=== PATIENT | female | born 1965 | race Hispanic/Latino ===

== ENCOUNTER 2020-10-24 13:41 | Inpatient (IN) | payer BC ==
[2020-10-24 17:08] LABS: SARS-CoV-2 NAA Rapid Test Not Detected (NotDetected)
[2020-10-24 17:12] VITALS: BMI 29.8
[2020-10-24] MEDS ORDERED: Acetaminophen 325 MG TAB PO PRN (17:24)
[2020-10-24] MEDS ORDERED: niCARdipine 25 MG in Sodium Chloride 0.9% 250 ML 250 ML IVPB PRN (17:24)
[2020-10-24] MEDS ORDERED: hydrALAZINE 20 MG/ML VIAL SLOW IVP PRN (17:24)
[2020-10-24] MEDS ORDERED: Acetaminophen 650 MG Suppository PR PRN (17:24)
[2020-10-24] MEDS ORDERED: Labetalol HCl 100 MG/20 ML VIAL SLOW IVP PRN (17:24)
--- NOTE | 2020-10-24 17:38 | PDOC.HHP ---
Hospitalist [facility] Code Stroke History of Present Illness: Ms. Loco is a 55-year-old female past medical history of Lazarus's thyroi ditis who was a transfer from [facility] for a code stroke. Patient at approximately 10:30 AM this morning developed sudden onset of dysphagia, right- sided facial droop, right upper and lower extremity weakness. This was witnessed by her who was with her at the time. Family called the ambulance immediately and she was transferred to [facility]. On arrival there CT brain was negative, however CT angiogram revealed thrombosis in the M2 vessel. Dr. Coy was consulted and the ER physician discussed with him. Dr. Coy felt that the lesion was too distal to be accessible for thrombectomy. Patient was administered aspirin at that time as her symptoms had briefly improved and so TPA was not given. Patient was transferred to [facility] in [place]. Here she had a worsening of her NIH stroke scale to 10. Case was discussed between ER physician, neurosurgery and neurology as well as family and the patient received TPA. Her symptoms have now greatly improved. Her reports that her speech is about 95% back to baseline, and patient reports that she still has some numbness or paresthesias to the right upper and lower extremities, but that her strength is much improved. NIH stroke scale is now at 2 post TPA. Patient has no history of any risk factors for stroke, but does have a family history significant for CVA in her mother. Patient's mother had a history of atrial fibrillation and have a stroke when she was temporarily off her warfarin. Patient denies any smoking history no oral contraceptive use. In emergency room initial vital signs 116, 57, 17, 98% on room air. Of note patient did receive atropine with during transfer, because she became temporarily bradycardic. Patient has had a heart rate in the 60s since arrival to [facility] ER. She is asymptomatic. H&H 12.5/38.1, WBC 3.9, platelet 182. BUN/CR 17/1.25, sodium 139, potassium 3.7, glucose 108. AST/ALT 42/40, alk phos 47, troponin less than 0.010. Patient admitted to hospitalist service for further work-up and management of her acute ischemic stroke. Allergies/Adverse Reactions: Allergy/AdvReac Type Severity Reaction Status Date / Time No Known Drug Allergies Allergy Unverified 10/24/20 18:57 Comments: No home medications Past History: PMHx: Lazarus's thyroiditis, patient reports she no longer takes medication for this PSHx: Appendectomy Tubal ligation FHx: Mother with stroke at age 84 Father with vascular dementia Social: Patient lives at home with her and 2 daughters. She denies tobacco, alcohol, drug use. Hospitalist HPI ROS Constitutional: denies: fever, chills, sweats, weakness, malaise, other Eyes: denies: pain, vision change, conjunctivae inflammation, eyelid inflammation, redness, other ENT: denies: ear pain, ear discharge, nose pain, nose discharge, nose congestion, mouth pain, mouth swelling, throat pain, throat swelling, other Respiratory: denies: cough, dry, shortness of breath, hemoptysis, SOB with excertion, pleuritic pain, sputum, wheezing, other Cardiovascular: denies: chest pain, palpitations, orthopnea, paroxysmal noc. dyspnea, edema, light headedness, other Gastrointestinal: denies: nausea, vomiting, abdominal pain, diarrhea, constipation, melena, hematochezia, other Genitourinary: denies: dysuria, frequency, incontinence, hematuria, retention, other Musculoskeletal: denies: neck pain, shoulder pain, arm pain, back pain, hand pain, leg pain, foot pain, other Skin: denies: rash, lesions, son, bruising, other Neurological: reports: weakness, numbness, change in speech, confusion. denies: incoordination, seizures, other Hospitalist Exam Vitals: Weight Weight 185 lb 13.595 oz General Appearance: NAD, awake alert Eye: PERRL, anicteric sclera Eye - other findings: Normal funduscopic exam ENT: normocephalic atraumatic, no oropharyngeal lesions, moist mucosa Neck: supple, symmetric, no JVD, no thyromegaly, no lymphadenopathy, no carotid bruit Heart: RRR, no murmur, no gallops, no rubs, normal peripheral pulses Respiratory: CTAB, no wheezes, no rales, no ronchi, normal chest expansion, no tachypnea, normal percussion Gastrointestinal: soft, non-tender, non-distended, normal bowel sounds, no palpable masses, no hepatomegaly, no splenomegaly, no bruit Extremities: no cyanosis, no clubbing, no edema Skin: normal turgor, no lesions, no rashes Neurological: cranial nerve grossly intact, normal sensation to touch (Decreased sensation to the right upper and lower extremities), no weakness, no focal deficits, no new deficit, speech deficit Neurological - other findings: FTN intact, No pronator drift Musculoskeletal: normal tone, normal strength, no muscle wasting Psychiatric: normal affect, normal behavior, A&O x 3 Hospitalist Results Lab results: Laboratory Last Values Influenza A RNA INAAT Not Detected (NotDetected) 10/24/20 15:14 Influenza B RNA INAAT Not Detected (NotDetected) 10/24/20 15:14 SARS-CoV-2 Rap RNA(RT-PCR) Not Detected (NotDetected) 10/24/20 15:14 Hospitalist H&P A/P Plan: Acute ischemic CVA 55-year-old female with minimal past medical history presents with acute ischemic CVA. CTA brain done at [facility] showed an M2 occlusion which was felt to be too distal by neurosurgery for thrombectomy. Patient received aspirin prior to transfer to [facility]. Upon arrival to [facility], patient's symptoms of right upper extremity lower extremity and dysphagia worsened so decision was made to administer TPA since patient was still in the window (symptoms began at 10:30 AM). Patient's NIH stroke scale was approximately 10 prior to TPA administration, and now is approximately a 2. She has good strength to her upper and lower extremities, very minimal dysphagia and is able to converse appropriately. Will admit to CCU for close monitoring status post TPA. Also obtain neurology consult and work-up for causes of ischemic stroke. Plan No blood draws for 24 hours, nursing staff aware Post TPA protocol No anticoagulants, antithrombotics Permissive HTN, prn hydralazine Echocardiogram Telemetry monitoring Neurology consult Status post TPA Patient status post TPA. Will admit to ICU for close monitoring. No blood draws for 24 hours. No anticoagulants or antithrombotics. Details were communicated with nursing staff. Given patient's age, she will need multiple lab draws for lipid profile, HgA1c, SUNDAY, etc. Will hold off on ordering these until she is out of the 24-hour TPA window. Hypothyroidism History of hypothyroidism. Patient reports she is not been taking any medications the past few months. Will check TSH level once patient is out of the TPA window. DVT prophylaxiscontraindicated 2/2 tpa Full code Case discussed with attending physician, Dr. Valadez.
--- NOTE | 2020-10-24 18:14 | CON ---
NEUROLOGY CONSULTATION DATE OF CONSULTATION: 10/24/2020 REASON FOR CONSULTATION: Stroke, status post tPA. HISTORY OF PRESENT ILLNESS: Ms. Corin Loco is a 55-year-old female with no significant medical history, presented to the [facility] because of stroke-like symptoms, which include speech deficit and weakness on the right side of the body with paresthesias. She was last seen normal around 10/24/2020 at 10:30 a.m. She arrived with symptoms of stroke within 4.5 hours of last known well and meets the criteria. Head CT was done, which did not reveal any acute intracranial pathology. CTA of the head and neck showed clot in the M2 distribution. Neurosurgery was contacted, but it was determined that she was not a candidate for surgery because the clot was too distal. She was given tPA around 1458 and transferred here for further evaluation. Her initial NIH Stroke Scale was 10, but currently is 2 and there is marked improvement in the neurologic deficits and she only has residual paresthesias and minor speech deficits. The patient denies any focal weakness, focal paresthesias, nausea, vomiting, headache, chest pain, abdominal pain, recent illness, recent exposure to COVID. She is a healthy person and does not take any medicines at home. ALLERGIES: NO KNOWN DRUG ALLERGIES. CURRENT MEDICATIONS: No medications. PAST MEDICAL HISTORY: No significant past medical history. SOCIAL HISTORY: , lives with the family. Denies smoking, alcohol, illegal drug use. FAMILY HISTORY: Mother has history of stroke. ALLERGIES: NO KNOWN DRUG ALLERGIES. PHYSICAL EXAMINATION: VITAL SIGNS: Blood pressure 100/70, pulse 80, respiratory rate 18. General Appearance: NAD, awake alert Eye: PERRL, anicteric sclera Eye - other findings: Normal funduscopic exam ENT: normocephalic atraumatic, no oropharyngeal lesions, moist mucosa Neck: supple, symmetric, no JVD, no thyromegaly, no lymphadenopathy, no carotid bruit Heart: RRR, no murmur, no gallops, no rubs, normal peripheral pulses Respiratory: CTAB, no wheezes, no rales, no ronchi, normal chest expansion, no tachypnea, normal percussion Gastrointestinal: soft, non-tender, non-distended, normal bowel sounds, no palpable masses, no hepatomegaly, no splenomegaly, no bruit Extremities: no cyanosis, no clubbing, no edema Skin: normal turgor, no lesions, no rashes Neurological: cranial nerve grossly intact, normal sensation to touch (Decreased sensation to the right upper and lower extremities), no weakness, no focal deficits, no new deficit, speech deficit Neurological - Mental status; the patient is alert and oriented to person, place, and time. Speech is clear. Cranial nerves 2 through 12 intact. Motor, muscle tone and bulk are normal. Strength 5/5 bilaterally. Sensory, mild decreased sensation on the right upper extremity. Cerebellar, finger-nose testing intact. Gait deferred due to the patient's safety reason. DATA REVIEWED: I reviewed the head CT which was negative for acute intracranial pathology. Lab results: Laboratory Last Values Influenza A RNA INAAT Not Detected (NotDetected) 10/24/20 15:14 Influenza B RNA INAAT Not Detected (NotDetected) 10/24/20 15:14 SARS-CoV-2 Rap RNA(RT-PCR) Not Detected (NotDetected) 10/24/20 15:14 ASSESSMENT AND PLAN: Ms. Corin Loco is a 55-year-old female, who was consulted for stroke-like symptoms and received tPA. The patient is currently doing well and the neurological deficits have significantly improved. Continue neuro checks every 2 hours. Admitted to CCU. Repeat head CT 24 hours post tPA. If negative, then start aspirin and high intensity statin for secondary stroke prevention. Check hemoglobin A1c, fasting lipid panel, and TSH. Telemetry to rule out arrhythmias. 2D echo to evaluate for left ventricular ejection fraction and to rule out thrombus or PFO. Permissive control of blood pressure at this time. Strict control of blood glucose. PT/OT/Speech. Continue medical management per primary team. Plan discussed in detail with the patient, at bedside and the nursing staff. We will continue to follow. Plan discussed with the primary provider. Thank you for the consult. Job ID: [id number] [facility] HEALTH SYSTEMDaria
[2020-10-24] MEDS ORDERED: Atorvastatin Calcium 40 MG TAB PO SCH (21:00)
--- NOTE | 2020-10-25 09:39 | CT ---
PRELIMINARY REPORT/[facility]/EMERGENCY AFTER HOURS PROCEDURE: EXAM: CT Head Without Intravenous Contrast. CLINICAL HISTORY: FOLLOW UP CVA// PT ON TPA FOR LEFT M2 OCCULSION TECHNIQUE: Axial computed tomography images of the head/brain without intravenous contrast. COMPARISON: CT angiogram 10/24/20. FINDINGS: BRAIN: No acute intraparenchymal hemorrhage. No mass lesion. No CT evidence for acute territorial infarct. N o midline shift or extra-axial collection. VENTRICLES: No hydrocephalus. ORBITS: The orbits are unremarkable. SINUSES AND MASTOIDS: The paranasal sinuses and mastoid air cells are clear. SOFT TISSUES: No significant facial or scalp soft tissue swelling evident. No radiopaque foreign body is seen. BONES: No acute skull fracture. IMPRESSION: No evidence for loss of peres-white differentiation at this time or intracranial hemorrhag e. ELECTRONICALLY SIGNED BY: Josh Chun MD Oct 25, 2020 5:18:33 AM VICE PRESIDENT DIGITAL STRATEGIST This report is intended for review by the ordering physician only, in accordance of law. If you recei ve this report in error, please call [facility] at [phone]. FINAL REPORT EMERGENCY AFTER HOURS CT BRAIN: I agree with the preliminary report provided by [facility]. No acute intracranial abnormality i s evident. No appreciable change is seen from comparison dated 10/24/2020 at 1155 hours. POS: DIANE
[2020-10-25] MEDS: Pantoprazole 40 MG VIAL IVP SCH (10:00)
[2020-10-25] MEDS ORDERED: Pantoprazole 40 MG VIAL ONE ×2 (10:05→10:06)
--- NOTE | 2020-10-25 14:28 | MRI ---
MRI BRAIN WITHOUT CONTRAST: Date: 10/25/2020 HISTORY: Right-sided weakness and loss of speech. FINDINGS: Correlation made with CT scans from earlier today and yesterday. There is a small focal area of restricted diffusion in the posterior left parietal lobe with hypointe nsity on ADC maps. No hemorrhage, midline shift, or abnormal extra-axial fluid collections are seen. There are a few foc i of T2 prolongation in the periventricular and subcortical white matter consistent with mild chronic small vessel ischemic disease. The ventricular size is normal and the basilar cisterns are patent. T he visualized paranasal sinuses and mastoid air cells are well aerated. IMPRESSION: Acute lacunar infarction in the left parietal lobe. POS: OFF
--- NOTE | 2020-10-25 20:06 | PDOC.HOSPP ---
- Subjective Encounter Date: 10/25/20 Encounter Time: 20:00 Subjective: f/u for acute L parietal lacunar infarct s/p tPA with resolving dysarthria/R sided weakness. No new complaints and states her deficits resolved completely. - Objective Vital Signs & Weight: Vital Signs (12 hours) Temp 10/25/20 16:00 97.7 F 10/25/20 12:00 98.1 F 10/25/20 09:00 98.7 F Weight Weight 185 lb 3.013 oz Most Recent Monitor Data Heart Rate from ECG 56 NIBP 86/60 NIBP BP-Mean 68 Respiration from ECG 12 SpO2 96 I&O: 10/24/20 10/25/20 10/26/20 06:59 06:59 06:59 Intake Total 900 Output Total 1060 Balance -160 Additional Labs: Accuchecks 10/25/20 10/25/20 10/25/20 16:21 13:06 08:19 POC Glucose 74 69 L 76 10/25/20 10/25/20 05:39 01:15 POC Glucose 76 94 Laboratory Tests 10/24/20 10/24/20 11:57 15:14 Creatinine 1.25 H Influenza A RNA INAAT Not Detected Influenza B RNA INAAT Not Detected SARS-CoV-2 Rap RNA(RT-PCR) Not Detected EKG Reviewed by me: Yes (Tele - SR) Hospitalist ROS - Medication Medications: Active Medications Generic Name Dose Route Start Last Admin Trade Name Freq PRN Reason Stop Dose Admin Pantoprazole Sodium 40 mg 10/25/20 09:00 10/25/20 10:00 Pantoprazole 40 Mg Vial IVP 40 mg DAILY [facility] Administration Hospitalist Exam Vitals: Vital Signs (12 hours) Temp 10/25/20 16:00 97.7 F 10/25/20 12:00 98.1 F 10/25/20 09:00 98.7 F Weight Weight 185 lb 3.013 oz Most Recent Monitor Data Heart Rate from ECG 56 NIBP 86/60 NIBP BP-Mean 68 Respiration from ECG 12 SpO2 96 General Appearance: NAD, awake alert Eye: PERRL, anicteric sclera ENT: normocephalic atraumatic, no oropharyngeal lesions Neck: supple, symmetric, no JVD, no thyromegaly, no lymphadenopathy Heart: RRR, no murmur, no gallops, no rubs, normal peripheral pulses Heart - other findings: S1, S2 Respiratory: CTAB, no wheezes, no rales, no ronchi, normal chest expansion Gastrointestinal: soft, non-tender, non-distended, normal bowel sounds Extremities: no cyanosis, no clubbing, no edema Skin: normal turgor, no lesions Neurological: cranial nerve grossly intact, no focal deficits Musculoskeletal: normal tone, normal strength Psychiatric: normal affect, A&O x 3 Hosp A/P (1) Acute CVA (cerebrovascular accident) Code(s): I63.9 - CEREBRAL INFARCTION, UNSPECIFIED Status: Acute Plan: s/p tPA with resolution of deficits, start ASA, check Lipid profile, general stroke protocol (2) Dysarthria Code(s): R47.1 - DYSARTHRIA AND ANARTHRIA Status: Acute Plan: Secondary to #1, resolved (3) Lazarus's thyroiditis Code(s): E06.3 - AUTOIMMUNE THYROIDITIS Status: Chronic Plan: Check TSH, FT4 (4) HLD (hyperlipidemia) Code(s): E78.5 - HYPERLIPIDEMIA, UNSPECIFIED Status: Chronic Plan: Check FLP in am, start statin in 24h - Plan PT/OT, mental health social worker, out of bed/ambulate, DVT proph w/SCDs Stable overall General stroke protocol Start ASA 81mg daily PT/OT/COORDINATOR OF PLACEMENT Appreciate Neurology assistance AM lab: BMP, CBC, FLP, TSH, FT4
[2020-10-26 05:26] LABS: #Eosinphils 0.2 thou/uL (0.0-0.7); #Lymphocytes 1.5 thou/uL (1.20-3.40); #Monocytes 0.3 thou/uL (0.11-0.59); %Basophils 0.4 % (0.0-1.0); %Eosinophils 4.8 % (0.0-10.0); %Lymphocytes 37.9 % (21.0-51.0); %Monocytes 8.1 % (0.0-10.0); %Neutrophils 48.8 % (42.0-75.0); Hemoglobin 11.6 g/dL (12.0-16.0); Mean Corpuscular HGB CONC 33.9 g/dL (32.0-36.0); Mean Corpuscular Volume 94.3 fL (78.0-98.0); Mean Platelet Volume 8.3 fL (7.4-10.4); Platelet Count 169 thou/uL (130-400); RBC Distribution Width 13.1 % (11.5-14.5); Red Blood Cell (RBC) Count 3.63 mill/uL (4.20-5.40)
[2020-10-26 05:32] LABS: Hemoglobin A1c 5.3 % (4.0-6.0)
[2020-10-26 05:47] LABS: ALT (SGPT) 22 U/L (8-55); AST (SGOT) 28 U/L (5-34); Albumin 4.2 g/dL (3.5-5.0); Alkaline Phosphatase 44 U/L (40-110); Anion Gap 15 mmol/L (10-20); BUN (Urea Nitrogen) 13 mg/dL (9.8-20.1); Bilirubin, Total 0.7 mg/dL (0.2-1.2); Calc. Creatinine Clearance 80 mL/min (70-130); Calcium 8.9 mg/dL (7.8-10.44); Carbon Dioxide 22 mmol/L (22-29); Cardiac Risk 6.5 (Less than 4.5); Chloride 105 mmol/L (98-107); Cholesterol 421 mg/dl (< 200 Desired); Globulin 2.6 g/dL (2.4-3.5); Glucose 81 mg/dL (70-105); HDL Cholesterol 65 mg/dL (>60 Neg Risk); LDL Cholesterol, Calculated 337 mg/dL; Potassium 3.7 mmol/L (3.5-5.1); Protein, Total 6.8 g/dL (6.0-8.3); Sodium 138 mmol/L (136-145); Triglycerides 95 mg/dL (Less than 150)
[2020-10-26] MEDS ORDERED: Aspirin 81 mg Enteric Coated Tablet PO SCH (09:00)
[2020-10-26] MEDS ORDERED: FLU VACC QS2020-21(6MOS UP)/PF 60 MCG/0.5 ML SYRINGE IM ONE (09:00)
[2020-10-26] MEDS: Pantoprazole 40 MG VIAL IVP SCH (09:43)
[2020-10-26] MEDS: Communication Order-Pharmacy FS SCH ×2 (09:44→09:48)
[2020-10-26 10:23] LABS: Free T4 (Free Thyroxine) Less than 0.40 ng/dL (0.70-1.48)
[2020-10-26 12:10] VITALS: BP 104/67; TEMP 98.7
--- NOTE | 2020-10-26 12:22 | PDOC.NEUPN ---
- Subjective Encounter Date: 10/26/20 Subjective: Mrs. Loco Is back to her baseline and feeling good today - Objective Vital Signs & Weight: Vital Signs (12 hours) Temp Pulse Pulse Pulse Resp BP BP 10/26/20 12:08 98.7 F 56 L 16 10/26/20 09:58 65 70 107/75 104/62 10/26/20 08:17 99.8 F H 67 17 10/26/20 04:00 98.7 F 57 L 17 BP BP Pulse Ox 10/26/20 12:08 104/67 95 10/26/20 09:58 10/26/20 08:17 110/77 10/26/20 04:00 86/53 L 97 Weight Weight 179 lb 3.773 oz Most Recent Monitor Data Heart Rate from ECG 58 NIBP 78/65 NIBP BP-Mean 62 Respiration from ECG 13 SpO2 96 I&O: 10/25/20 10/26/20 10/27/20 06:59 06:59 06:59 Intake Total 900 240 Output Total 1060 1100 Balance -160 -860 Result Diagrams: 10/26/20 05:01 10/26/20 05:01 Additional Labs: Accuchecks 10/26/20 10/25/20 10/25/20 06:40 16:21 13:06 POC Glucose 70 74 69 L Radiology Reviewed by me: Yes EKG Reviewed by me: Yes ROS - Review of Systems Constitutional: denies: fever, chills, sweats, weakness, malaise, other Eyes: denies: pain, vision change, conjunctivae inflammation, eyelid inflammation, redness, other ENT: denies: ear pain, ear discharge, nose pain, nose discharge, nose congestion, mouth pain, mouth swelling, throat pain, throat swelling, other Respiratory: denies: cough, dry, shortness of breath, hemoptysis, SOB with excertion, pleuritic pain, sputum, wheezing, other Cardiovascular: denies: no pertinent history, AFIB, CAD, CHF, HTN, SC, Syncope, Hyperlipidemia, Mitral valve stenosis, Aortic stenosis, Valve insufficiency, Pulmonary hypertension, Other Gastrointestinal: denies: nausea, vomiting, abdominal pain, diarrhea, constipation, melena, hematochezia, other Genitourinary: denies: dysuria, frequency, incontinence, hematuria, retention, other Musculoskeletal: denies: neck pain, shoulder pain, arm pain, back pain, hand pain, leg pain, foot pain, other Skin: denies: rash, lesions, son, bruising, other Neurological: denies: weakness, numbness, incoordination, change in speech, confusion, seizures, other - Medication Medications: Active Medications Generic Name Dose Route Start Last Admin Trade Name Vladimir PRN Reason Stop Dose Admin Aspirin 81 mg 10/26/20 09:00 10/26/20 09:43 Aspirin 81 Mg Enteric Coated Tablet PO 81 mg DAILY [facility] Administration - Exam General Appearance: awake alert Eye: PERRL ENT: normocephalic atraumatic Neck: supple Respiratory: CTAB Cardiovascular: RRR Gastrointestinal: soft Extremities: no cyanosis Skin: normal turgor Neurological: no focal deficits Musculoskeletal: normal tone, normal strength, no muscle wasting PSYCH: normal affect, normal behavior, A&O x 3 Results - Labs Result Diagrams: 10/26/20 05:01 10/26/20 05:01 Lab results: WBC 4.0 thou/uL (4.8-10.8) L 10/26/20 05:01 Hgb 11.6 g/dL (12.0-16.0) L 10/26/20 05:01 Hct 34.2 % (36.0-47.0) L 10/26/20 05:01 MCV 94.3 fL (78.0-98.0) 10/26/20 05:01 Plt Count 169 thou/uL (130-400) 10/26/20 05:01 Neutrophils % 48.8 % (42.0-75.0) 10/26/20 05:01 Sodium 138 mmol/L (136-145) 10/26/20 05:01 Potassium 3.7 mmol/L (3.5-5.1) 10/26/20 05:01 Chloride 105 mmol/L (98-107) 10/26/20 05:01 Carbon Dioxide 22 mmol/L (22-29) 10/26/20 05:01 BUN 13 mg/dL (9.8-20.1) 10/26/20 05:01 Creatinine 1.03 mg/dL (0.6-1.1) 10/26/20 05:01 Glucose 81 mg/dL (70-105) 10/26/20 05:01 Calcium 8.9 mg/dL (7.8-10.44) 10/26/20 05:01 Total Bilirubin 0.7 mg/dL (0.2-1.2) 10/26/20 05:01 AST 28 U/L (5-34) 10/26/20 05:01 ALT 22 U/L (8-55) 10/26/20 05:01 Alkaline Phosphatase 44 U/L (40-110) 10/26/20 05:01 Serum Total Protein 6.8 g/dL (6.0-8.3) 10/26/20 05:01 Albumin 4.2 g/dL (3.5-5.0) 10/26/20 05:01 - EKG Interpretation EKG: Normal sinus rhythm - Radiology Interpretation MRI - head Additional Comment: MRI of the brain was positive for lacunar infarction in the left parietal region PN A/P (1) Acute CVA (cerebrovascular accident) Code(s): I63.9 - CEREBRAL INFARCTION, UNSPECIFIED Status: Acute (2) Dysarthria Code(s): R47.1 - DYSARTHRIA AND ANARTHRIA Status: Acute (3) HLD (hyperlipidemia) Code(s): E78.5 - HYPERLIPIDEMIA, UNSPECIFIED Status: Chronic (4) Lazarus's thyroiditis Code(s): E06.3 - AUTOIMMUNE THYROIDITIS Status: Chronic - Plan Daily Plan: out of bed/ambulate Mrs. Loco is a 55-year-old female with no significant past medical history except for Lazarus's thyroiditis presented to the emergency room with acute onset strokelike symptoms. She was first seen at the [place] emergency room and transferred here for further evaluation. Her NIH H: Stroke scale was 10 at the time of presentation. She was given TPA and the stroke scale improved to a 2. Symptoms almost resolved at this time and she is doing well. Head CT 24 hours post TPA is negative for bleed. MRI of the brain was positive for tiny acute lacunar infarction in the left parietal region. Continue aspirin and high intensity statin for secondary stroke prevention. Telemetry to rule out arrhythmias as negative. Control of blood pressure and blood glucose 2D echo showed left ventricular ejection fraction 50 to 55%. No thrombus or PFO. CTA of the neck did not reveal hemodynamically significant stenosis. CTA of the [place] did show clot in the M2. Neurosurgery was contacted and the plan was to distal so decided to treat with TPA. Neurochecks every 4 hours. Continue home medications. Continue medical management per primary team. PT/OT/speech. Plan discussed in detail with the patient, nursing staff and the primary attending Dr. Pham
[2020-10-26] MEDS ORDERED: Atorvastatin Calcium 40 MG TAB PO SCH (21:00)
--- NOTE | 2020-10-27 07:11 | DIS ---
DATE OF ADMISSION: 10/24/2020 DATE OF DISCHARGE: 10/26/2020 DISCHARGE DIAGNOSIS: 1. Acute CVA, status post tPA with complete resolution of neurologic deficits. 2. Dysarthria secondarily to #1, resolved. 3. Hyperlipidemia. 4. Lazarus thyroiditis, uncontrolled. HOSPITAL COURSE: The patient was initially admitted after presenting with acute CVA with associated dysarthria, dysphagia, right-sided facial droop, and right upper and lower extremity weakness. The patient underwent evaluation in the emergency room and was deemed an appropriate candidate for tPA after receiving aspirin. The patient had near resolution of all neurologic deficits after tPA administration. The patient was placed on tPA protocol and monitored without clinical deterioration. The patient was noted with elevated TSH with a depressed free T4 level of 0.4 in the context of Lazarus thyroiditis. Current recommendations are for outpatient followup with Endocrinology for further control of her disease. The patient was also noted with hyperlipidemia with total cholesterol of 421 and LDL level of 337. Recommendations are to initiate Lipitor 40 mg at bedtime. MRI imaging obtained, 10/25/2020, showed acute lacunar infarct in the left parietal distribution after initial CT imaging of the brain showed no acute process. 2D transthoracic echocardiogram was performed on 10/25/2020 showing ejection fraction of 50% to 55% with moderate aortic regurgitation. No evidence of intracardiac shunt was noted. The patient was evaluated by the Neurology Service with recommendations for secondary prevention measures and outpatient followup for surveillance. Overall, the patient did remain clinically stable during the hospital course, tolerating regular oral intakes, ambulatory without assistance or difficulty with stable vital signs. I have examined the patient at the time of discharge and discussed followup instructions. The patient verbalized understanding and in agreement, ready for discharge on 10/26/2020. DISCHARGE MEDICATIONS: 1. Enteric-coated aspirin 81 mg p.o. daily. 2. Lipitor 40 mg p.o. at bedtime. 3. Zinc 50 mg p.o. daily. 4. Vitamin C 250 mg p.o. daily. 5. Curcumin 450 gm p.o. b.i.d. FOLLOWUP: The patient to follow up with primary care provider of choice, which the patient will coordinate after discharge. 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 CONDITION ON DISCHARGE: Stable. ACTIVITY: Ad-konrad. DIET: Heart healthy. CODE STATUS: Full. DISPOSITION: Home on 10/26/2020. TIME SPENT: Total time preparing and coordinating discharge, 36 minutes. Job ID: [id number]
== END 2020-10-26 13:22 | disposition home or self-care (01) | DRG 62 ==
LOC: ERS 13:41 → ERHOLD 16:27 → 2NO 10-25 21:55
PROVIDERS: ADMIT Internal Medicine; ATTEND Internal Medicine
DX: I63.9 Cerebral infarction, unspecified (principal); G81.91 Hemiplegia, unspecified affecting right dominant side; R29.710 NIHSS score 10; Z20.822 Contact with and (suspected) exposure to COVID-19; R47.1 Dysarthria and anarthria; E78.5 Hyperlipidemia, unspecified; E06.3 Autoimmune thyroiditis; I35.1 Nonrheumatic aortic (valve) insufficiency; R29.810 Facial weakness; R13.10 Dysphagia, unspecified; E03.9 Hypothyroidism, unspecified; Z98.51 Tubal ligation status; Z90.49 Acquired absence of other specified parts of digestive tract; Z82.3 Family history of stroke; Z82.0 Family history of epilepsy and other diseases of the nervous system; Z79.899 Other long term (current) drug therapy
CPT/HCPCS: 0240U; 36415; 36416; 51702; 70450; 70551; 80053; 80061; 83036; 84439; 84443; 85025; 93306; 94760; 96374; C9113; J2997